=== PATIENT | male | born 1945 | race African-American/Black ===

== ENCOUNTER 2017-09-24 22:41 | Inpatient (IN) | payer OTHER ==
[~2017-09-24] VITALS: Ht 167.6 cm; Wt 80.2 kg
[2017-09-24 23:33] LABS: BASOPHIL (%) 0.3 % (0-1); EOSINOPHIL COUNT 0.1 K/uL (0-0.3); HEMATOCRIT 46.9 % (38.0-50.0); HEMOGLOBIN 15.7 G/DL (12.5-16.6); IMMATURE GRANULOCYTE (%) 0.5 % (0.0-0.7); LYMPHOCYTE COUNT 1.3 K/uL (1.0-2.8); MCH 27.2 PG (29.0-34.0); MCHC 33.5 G/DL (30.0-36.0); MCV 81.3 FL (86-99); MONOCYTE (%) 8.9 % (3-12); MONOCYTE COUNT 0.6 K/uL (0-0.8); NEUTROPHIL (%) 68.3 % (45-76); NEUTROPHIL COUNT 4.3 K/uL (1.8-6.4); PLATELET COUNT 236 K/uL (156-360); RBC DIS.WIDTH-CV 14.3 % (11.8-14.6); RED BLOOD COUNT 5.77 M/uL (4.00-5.50); WHITE BLOOD COUNT 6.3 K/uL (4.1-10.2)
[2017-09-24 23:46] LABS: ALBUMIN 4.2 g/dL (3.2-4.8); CHLORIDE 108 mEq/L (99-109); POTASSIUM 3.7 mEq/L (3.7-5.4); SODIUM 138 mEq/L (136-147)
[2017-09-24 23:48] LABS: GLUCOSE 88 mg/dL (70-99)
[2017-09-24 23:49] LABS: TOTAL PROTEIN 7.7 g/dL (6.4-8.3)
[2017-09-24 23:50] LABS: TOTAL BILIRUBIN 0.9 mg/dL (0.0-1.0)
[2017-09-24 23:52] LABS: ALKALINE PHOSPHATASE 66 IU/L (3-129); CREATININE 1.1 mg/dL (0.6-1.3); GFR ESTIMATE (CALCULATED) > 59 mL/min/ (58.99-99999)
[2017-09-24 23:53] LABS: UREA NITROGEN (BUN) 15 mg/dL (9-23)
[2017-09-24 23:54] LABS: AST (GOT) 13 IU/L (2-34)
[2017-09-24 23:55] LABS: ALT (GPT) 9 IU/L (3-49)
[2017-09-25] MEDS ORDERED: ASPIRIN325 MG PO (01:14)
[2017-09-25 03:40] LABS: APPEARANCE SL.HAZY ((CLEAR)); BILIRUBIN NEGATIVE; BLOOD NEGATIVE; COLOR YELLOW ((YELLOW)); GLUCOSE (STRIP) NEGATIVE; KETONES 20; LEUKOCYTES LARGE; NITRITE NEGATIVE; PROTEIN (STRIP) NEGATIVE; SPECIFIC GRAVITY 1.018 (1.000-1.030)
[2017-09-25 03:44] LABS: BACTERIA RARE /HPF; EPITHELIAL CELLS RARE /HPF; MUCUS TRACE /LPF; RED BLOOD CELLS 0-5 /HPF (0-5); UCUL ADDED? YES; WHITE BLOOD CELLS TNTC /HPF (0-5)
[2017-09-25 20:18] VITALS: BP 144/95
== END 2017-09-25 19:04 | disposition short-term general hospital (02) | DRG 57 ==
LOC: EDBD 22:41 → EME 22:41 → EDOF 09-25 03:17 → ENRESERV 09-25 03:19 → CANRESERV 09-25 16:21 → EDOF 09-25 19:04
PROVIDERS: Emergency Medicine
DX: G91.1 Obstructive hydrocephalus (principal); G93.9 Disorder of brain, unspecified; N39.0 Urinary tract infection, site not specified; K43.9 Ventral hernia without obstruction or gangrene; Z87.891 Personal history of nicotine dependence; Z82.5 Family history of asthma and other chronic lower respiratory diseases
CPT/HCPCS: 70450; 70553; 71260; 80053; 81003; 85025; 87086; 99281; 99285; G0103; J1100